=== PATIENT | female | born 1950 | race Caucasian/White ===

== ENCOUNTER 2022-10-30 17:43 | Emergency (ER) | payer MEDICARE, OTHER ==
[2022-10-30 18:08] VITALS: BP 156/60; PULSE 98
== END 2022-10-30 18:37 | disposition home or self-care (01) ==
LOC: JD.ED 17:43
DX: Z48.01 Encounter for change or removal of surgical wound dressing (principal); E78.00 Pure hypercholesterolemia, unspecified; Z79.899 Other long term (current) drug therapy; Z88.5 Allergy status to narcotic agent; Z88.6 Allergy status to analgesic agent
CPT/HCPCS: 99282